=== PATIENT | male | born 1960 | race Caucasian/White ===

== ENCOUNTER 2022-01-16 02:12 | Emergency (ER) | payer SELFPAY ==
[~2022-01-16] VITALS: Ht 182.9 cm; Wt 95.0 kg
[2022-01-16 02:17] VITALS: BP 155/78
[2022-01-16 03:41] LABS: CLARITY URINE CLEAR (CLEAR); COLOR URINE YELLOW (YELLOW); KETONES URINE TRACE (NEGATIVE); LEUKOCYTE ESTERASE URINE NEGATIVE (NEGATIVE); NITRITE URINE NEGATIVE (NEGATIVE); OCCULT BLOOD URINE NEGATIVE (NEGATIVE); PROTEIN URINE NEGATIVE (NEGATIVE); SPECIFIC GRAVITY URINE 1.019 (1.005-1.030); UROBILINOGEN URINE 0.2 E.U./dL (0.2-1.0)
[2022-01-16] MEDS ORDERED: ACETAMINOPHEN 325MG TABLET PO STA (03:57)
[2022-01-16 04:20] LABS: HEMOGLOBIN. 13.1 g/dL (14.0-18.0); MEAN CORPUSCULAR VOLUME 91.9 fL (80.0-94.0); MEAN PLATELET VOLUME 7.3 fl (7.4-10.4); PLATELET 194 x1000/uL (130-400); RED BLOOD CELL COUNT 4.24 mill/uL (4.7-6.1); RED CELL DISTRIBUTION WIDTH 13.4 % (11.6-14.6)
[2022-01-16 04:48] LABS: CHLORIDE 112 mEq/L (98-107)
[2022-01-16 05:09] LABS: PLATELET ESTIMATE NORMAL
[2022-01-16] MEDS ORDERED: GUAI-858 PO (05:33)
[2022-01-16] MEDS ORDERED: NAPR-681 PO (05:33)
[2022-01-16] MEDS ORDERED: METF-414 MT (05:33)
== END 2022-01-16 06:12 | disposition home or self-care (01) ==
LOC: ER 02:12
DX: J06.9 Acute upper respiratory infection, unspecified (principal); E11.9 Type 2 diabetes mellitus without complications; I10 Essential (primary) hypertension; Z20.822 Contact with and (suspected) exposure to COVID-19
CPT/HCPCS: 36415; 71045; 80053; 81003; 85025; 87426; 99284